=== PATIENT | male | born 1990 | race African-American/Black ===

== ENCOUNTER 2020-06-21 02:58 | Emergency (ER) | payer SELFPAY ==
[~2020-06-21] VITALS: Ht 182.9 cm; Wt 79.4 kg
[2020-06-21 06:28] VITALS: BP 128/72
== END 2020-06-21 06:32 | disposition left against medical advice (07) ==
LOC: ER 02:58 → EDBD 02:58 → ER 06:32
DX: F10.239 Alcohol dependence with withdrawal, unspecified (principal); Z53.21 Procedure and treatment not carried out due to patient leaving prior to being seen by health care provider

== ENCOUNTER 2020-06-30 15:12 | Emergency (ER) | payer SELFPAY ==
[~2020-06-30] VITALS: Ht 177.8 cm; Wt 72.6 kg
[2020-06-30] MEDS ORDERED: FOLIC ACID 1 MG, MULTIPLE VITAMIN 10 ML, MAGNESIUM SULF SDV 50% 8 MEQ, THIAMINE INJ 100... INJ SCH ×5 (16:15)
[2020-06-30 16:35] LABS: Basophils # (auto) 0.1 10 ^3/uL (0-0.2); Basophils % (auto) 1.5 % (0.0-2.0); Eosinophils # (auto) 0.1 10 ^3/uL (0-0.8); Eosinophils % (auto) 1.8 % (0.0-7.0); Hematocrit 39.8 % (41.0-53.0); Hemoglobin 12.8 g/dL (13.5-17.5); Lymphocytes % (auto) 49.6 % (10.0-50.0); Mean Corpuscular Hemoglobin 28.4 pg (28.0-32.0); Mean Corpuscular Hgb Conc. 32.1 g/dL (32.0-36.0); Mean Corpuscular Volume 88.6 fL (80.0-100.0); Monocytes # (auto) 0.2 10 ^3/uL (0-1.3); Neutrophils # (auto) 1.7 10 ^3/uL (1.6-8.6); Neutrophils % (auto) 43.1 % (37.0-80.0); Nucleated Red Blood Cells % 0.1 %; Platelet Count (auto) 162 10^3/uL (140-450); Red Blood Cells 4.49 10^6/uL (4.5-5.90); White Blood Cell 3.9 10^3/uL (4.4-10.8)
[2020-06-30 16:37] LABS: Urine WBC None Seen /hpf (0 - 3)
[2020-06-30 16:41] LABS: Albumin 3.7 g/dL (3.4-5.0); Calcium 7.9 mg/dL (8.5-10.1); Potassium 3.5 mmol/L (3.5-5.1)
[2020-06-30 16:42] LABS: Red Cell Distribution Width 20.4 % (11.8-14.3)
[2020-06-30 16:45] LABS: Urine Bacteria NONE SEEN /hpf (None Seen); Urine Blood 1+ /uL (Negative); Urine Specific Gravity 1.019 (1.001-1.035)
[2020-06-30 16:46] LABS: BUN/Creatinine Ratio 10.2; Bilirubin, Total 0.3 mg/dL (0.2-1.0); Total Protein 7.8 g/dL (6.4-8.2)
[2020-06-30 17:08] LABS: Amphetamine Screen, Urine NEGATIVE (NEGATIVE); Barbiturate Scree,Urine NEGATIVE (NEGATIVE); Benzodiazephine Screen, Urine NEGATIVE (NEGATIVE); Cannabinoid Screen, Urine NEGATIVE (NEGATIVE); Cocaine Screen, Urine NEGATIVE (NEGATIVE); Opiate Scree,Urine NEGATIVE (NEGATIVE); Phencyclidine Screen, Urine NEGATIVE (NEGATIVE)
[2020-06-30] MEDS ORDERED: SODIUM CHLORIDE 0.9% 1,000 ML IV ONE ×2 (18:15→19:45)
[2020-07-01] MEDS ORDERED: ONDANSETRON HCL 4 MG/2 ML VIAL IV ONE (00:30)
[2020-07-01] MEDS ORDERED: chlordiazePOXIDE HCL 25 MG CAP PO ONE (00:30)
[2020-07-01] MEDS ORDERED: LORazepam 2MG/ML-1ML VIAL IV ONE (01:15)
[2020-07-01] MEDS ORDERED: PROMETHAZINE HCL 25 MG/ML 1ML IV ONE (01:15)
[2020-07-01] MEDS ORDERED: PANTOPRAZOLE 40 MG/10 ML VIAL INJ IV ONE (01:15)
[2020-07-01 05:30] VITALS: BP 120/72
== END 2020-07-01 05:48 | disposition home or self-care (01) ==
LOC: EDBD 15:12 → ER 15:12
DX: F10.10 Alcohol abuse, uncomplicated (principal); F41.9 Anxiety disorder, unspecified
CPT/HCPCS: 36415; 71046; 80053; 80307; 80320; 81001; 85025; 96365; 96366; 96375; 99285; C9113; J2060; J2405; J2550; J3411; J3475; J7030

== ENCOUNTER → 2020-07-02 | Emergency (ER) | payer SELFPAY ==
[~2020-07-02] VITALS: Ht 177.8 cm; Wt 74.8 kg
[~2020-07-02] MED LIST: SODIUM CHLORIDE 0.9% 1,000 ML IVB ONE
[2020-07-02 19:00] VITALS: BP 101/65
== END | disposition home or self-care (01) ==
LOC: EDUNIT# 18:31 → ER 18:32 → EDBD 18:32
DX: F10.10 Alcohol abuse, uncomplicated (principal); F32.9 Major depressive disorder, single episode, unspecified; F41.9 Anxiety disorder, unspecified